=== PATIENT | male | born 1975 | race African-American/Black ===

== ENCOUNTER 2016-08-29 07:00 | Emergency (ER) | payer OTHER ==
[~2016-08-29] VITALS: Ht 172.7 cm; Wt 71.7 kg
[~2016-08-29 07:00] MED LIST: HYDR-971 PO; POLY10DR OS
[2016-08-29] MEDS ORDERED: AMOX875T PO (07:48)
--- NOTE | 2016-08-29 07:49 | PHYS DOC ---
Past Medical History Past Medical History: No Pertinent History Past Surgical History: No Surgical History Alcohol Use: Occasionally Drug Use: None Adult General Chief Complaint Chief Complaint: EARACHE/EAR PAIN HPI HPI Patient is a 41 year old medical presents with mild left ear pain that began this morning. Patient denies any fever coughing or congestion. Review of Systems Review of Systems Constitutional: Denies fever or chills [] Eyes: Denies change in visual acuity, redness, or eye pain [] HENT: mild left ear pain Respiratory: Denies cough or shortness of breath [] Cardiovascular: No additional information not addressed in HPI [] Musculoskeletal: Denies back pain or joint pain [] Integument: Denies rash or skin lesions [] Neurologic: Denies headache, focal weakness or sensory changes [] Endocrine: Denies polyuria or polydipsia [] Allergies Allergies Allergies Coded Allergies Type Severity Reaction Last Updated Verified No Known Drug Allergies 07/30/16 No Physical Exam Physical Exam Constitutional: Well developed, well nourished, no acute distress, non-toxic appearance. [] HENT: Normocephalic, atraumatic, bilateral external ears normal, oropharynx moist, no oral exudates, nose normal. [] Left TM is moderately injected, Right TM is normal Eyes: PERRLA, EOMI, conjunctiva normal, no discharge. [] Neck: Normal range of motion, no tenderness, supple, no stridor. [] Cardiovascular:Heart rate regular rhythm, no murmur [] Lungs & Thorax: Bilateral breath sounds clear to auscultation [] Skin: Warm, dry, no erythema, no rash. [] Back: No tenderness, no CVA tenderness. [] Extremities: No tenderness, no cyanosis, no clubbing, ROM intact, no edema. [] Neurologic: Alert and oriented X 3, normal motor function, normal sensory function, no focal deficits noted. [] Psychologic: Affect normal, judgement normal, mood normal. [] Current Patient Data Vital Signs Vital Signs Date Time Temp Pulse Resp B/P Pulse Ox O2 Delivery O2 Flow Rate FiO2 08/29/16 07:28 98.1 58 16 98 Room Air 98.1 EKG EKG [] Radiology/Procedures Radiology/Procedures [] Course & Med Decision Making Course & Med Decision Making Pertinent Labs and Imaging studies reviewed. (See chart for details) Patient has left otitis media. Discharged with amoxicillin for 10 days. Tylenol / Motrin for pain or fever. Follow-up with PCP in one week. Dragon Disclaimer Kevinon Disclaimer This electronic medical record was generated, in whole or in part, using a voice recognition dictation system. Departure Departure Impression: Primary Impression: Otitis media Disposition: HOME, SELF-CARE Condition: STABLE Referrals: NO PCP (PCP) follow up with your doctor in one week Patient Instructions: Otitis Media, Adult Additional Instructions: You were seen for an ear infection. Please complete your antibiotics. Take Tylenol or Motrin as needed for pain or fever. Follow-up with your doctor in one week. Come back to the ED for any concerning or worsening condition. Scripts Amoxicillin 875 Mg Tablet1 Tab PO BID #20 TAB Prov:CHARLES CONTEH APRN 08/29/16 Problem Qualifiers Primary Impression: Otitis media Otitis media type: other nonsuppurative Laterality: left Chronicity: acute Recurrence: not specified as recurrent Qualified Code: H65.192 - Other acute nonsuppurative otitis media, left ear CHARLES CONTEH APRN Aug 29, 2016 07:49
[2016-08-29 07:52] VITALS: BP 150/90
== END 2016-08-29 07:52 | disposition home or self-care (01) ==
LOC: ER 07:00
DX: H65.192 Other acute nonsuppurative otitis media, left ear (principal)
CPT/HCPCS: 99283